=== PATIENT | male | born 1950 ===

== ENCOUNTER 2016-05-03 06:17 | Day surgery (SDC) | payer MEDICARE, OTHER ==
[~2016-05-03] VITALS: Ht 182.9 cm; Wt 99.1 kg
[~2016-05-03 06:17] MED LIST: LACTATED RINGERS 1,000 ML IV SCH; SODIUM CHLORIDE FLUSH 3 ML SYR IV PRN
[2016-05-03 06:32] VITALS: BP 136/84
[2016-05-03] MEDS ORDERED: SODIUM CHLORIDE FLUSH 100 ML ONE (06:55)
[2016-05-03] MEDS ORDERED: ALFENTANIL 500 MCG/ML (ALFENTA) 5 ML AMP IV ONE (07:17)
[2016-05-03] MEDS ORDERED: MIDAZOLAM 2 MG/2 ML (VERSED) VIAL ONE (07:17)
[2016-05-03] MEDS ORDERED: PROPOFOL 20 ML IV ONE (07:17)
[2016-05-03 08:20] VITALS: BP 133/85
[2016-05-03 08:35] VITALS: BP 138/79
== END 2016-05-03 08:41 | disposition home or self-care (01) ==
LOC: ASC 06:17
PROVIDERS: ATTEND Surgery
PROC: 0DJD8ZZ Inspection of Lower Intestinal Tract, Via Natural or Artificial Opening Endoscopic (ICD-10-PCS; principal; 2016-05-03)
DX: Z12.11 Encounter for screening for malignant neoplasm of colon (principal); K57.30 Diverticulosis of large intestine without perforation or abscess without bleeding; I10 Essential (primary) hypertension; Z87.898 Personal history of other specified conditions
CPT/HCPCS: 93005; G0121; J2250; J7120